=== PATIENT | male | born 1955 | race Caucasian/White ===

== ENCOUNTER 2018-07-09 07:58 | Inpatient (IN) ==
[2018-07-09] MEDS ORDERED: cefOXitin 2,000 MG in Water for inj. (sterile) 20 ML 20 ML IVP ONE (08:26)
[2018-07-09] MEDS: Ringers Solution, Lactated 1,000 ML IVC SCH ×3 (08:53→15:40)
--- NOTE | 2018-07-09 08:56 | History & Physical Report ---
Date of Encounter: 07/09/18 Time of Encounter: 08:55 24 Hour HP Update - Instructions Instructions: If the History and Physical is less than 30 days old and was completed prior to A.M. admission and or procedure and has NOT been updated on calendar day of procedure please complete this update prior to performing procedure. - Update Patient reports changes in Medical Condition: No Changes in examination, assessment, or condition: No Changes in Medication: No Preop tests/diagnostics Reviewed: Yes Surgery Remains Indicated: Yes Consent for Planned Operative Procedure(s) Verified: Yes - Pre-Operative Checklist Preoperative Checklist Indicated: Yes Prophylactic Antibiotic Ordered: Yes Home Medications Include Beta Rita: No Beta Rita Taken Today (Day of Surgery): No
[2018-07-09] MEDS ORDERED: Lidocaine -MPF 4% 5 ML AMPUL ONE (09:58)
[2018-07-09] MEDS ORDERED: *HR* Succinylcholine 200 MG/10 ML VIAL IVP ONE (09:58)
[2018-07-09] MEDS ORDERED: Lidocaine -MPF 2% 2 ML VIAL ONE (09:58)
[2018-07-09] MEDS ORDERED: *HR* Midazolam HCl 2 MG/2 ML VIAL ONE (09:58)
[2018-07-09] MEDS ORDERED: *HR* Propofol 200 MG/20 ML VIAL IVP ONE (09:58)
[2018-07-09] MEDS ORDERED: *HR* FentaNYL (PF) 100 MCG/2 ML VIAL ONE (09:58)
[2018-07-09] MEDS ORDERED: Dexamethasone 4 MG/ML VIAL ONE (09:58)
[2018-07-09] MEDS ORDERED: *HR* Rocuronium Bromide 50 MG/5 ML VIAL ONE ×2 (09:58→11:57)
[2018-07-09] MEDS ORDERED: Ondansetron 4 MG/2 ML VIAL ONE (09:58)
--- NOTE | 2018-07-09 10:07 | Anesthesia Evaluation PreOp ---
Date of Encounter: 07/09/18 Time of Encounter: 10:05 - Past History Planned Operation: Robotic low anterior resection w diverting ileostomy Cardiac History: HTN, Hyperlipidemia, Other (mod one vessel CAD) Pulmonary History: Former smoker, ALICIA Dx (does not wear a cpap) COMPENSATION ADVISOR History: Other (neuropathy) Other Medical History: GERD, Other (colon CA s/p radiation and chemo 04/2018) Alcohol Use: none Drug use: marijuana Medications and Allergies Lisinopril [Zestril] 10 mg PO DAILY 03/12/18 [History] metFORMIN [Glucophage] 500 mg PO BID 03/12/18 [History] Pravastatin Sodium [Pravachol] 20 mg PO DAILY 03/20/18 [History] Calcium Carbonate/Vitamin D3 [Calcium 500 + Vit D Caplet] 1 tab PO DAILY 07/09/18 [History] Multivitamin [One Daily Multivitamin] 1 tab PO DAILY 07/09/18 [History] [place]-3/Dha/Epa/Fish Oil [Cvs Fish Oil 1,000 mg Softgel] 1 cap PO DAILY 07/09/18 [History] Allergy/AdvReac Type Severity Reaction Status Date / Time No Known Allergies Allergy Verified 07/09/18 08:57 - Meds/Allergy Pre-op Review Medications Reviewed: Yes Allergies Reviewed: Yes Beta Blockers on Current Med List: No Anesthesia Results - Labs Laboratory Tests 06/20/18 07/04/18 07/04/18 11:37 07:14 07:14 WBC 3.4 L Hgb 13.5 Hct 41.6 Plt Count 160 Sodium 138 Potassium 4.4 Chloride 104 Carbon Dioxide 28 BUN 13 Creatinine 0.70 Est GFR ( Amer) > 60 Est GFR (Non-Af Amer) > 60 BUN/Creatinine Ratio 19 Glucose 89 Est Mean Plasma Glucose 94 Hemoglobin A1c 4.9 - Imaging EKG: report reviewed, image reviewed (SINUS BRADYCARDIA MODERATE VOLTAGE CRITERIA FOR LVH, CONSIDER NORMAL VARIANT) Anesthesia Exam Last Vital Signs Temp 98.3 F 07/09/18 08:43 Pulse 75 07/09/18 08:43 Resp 18 07/09/18 08:43 BP 129/82 07/09/18 08:43 Pulse Ox 98 07/09/18 08:43 Weight: 95 kg NPO (# of Hours): > 8 hrs - HEENT Pupil (Motor): Pupils equal, EOMI Mallampati: III Teeth: Missing Denture Type: Upper: Partial Oral Opening: Greater than 3 - COMPENSATION ADVISOR LOC: Oriented - Cardiac Rhythm: Regular Murmur: None - Pulmonary Breath Sounds: bilateral Clear Respiratory Effort: Symmetrical Anesthesia Assess/Plan ASA Score: 3 Level of consciousness: Cooperative Anesthetic Plan: General Monitoring Plan: Standard Monitors Recovery Plan: PACU
[2018-07-09] MEDS ORDERED: *HR* Promethazine 25 MG/ML VIAL IVP PRN (10:08)
[2018-07-09] MEDS ORDERED: Acetaminophen IV 1,000 MG/100 ML INFUS..BTL IVPB ONE (10:08)
[2018-07-09] MEDS ORDERED: Neostigmine Methylsulfate 3 MG/3 ML SYRINGE ONE (12:34)
[2018-07-09] MEDS ORDERED: *HR* HYDROMORPHONE 2 MG/ML VIAL ONE (13:22)
[2018-07-09] MEDS: *HR* HYDROmorphone (PF) 1 MG/ML SYRINGE IVP PRN ×4 (14:47→15:02)
[2018-07-09] MEDS: *HR* FentaNYL (PF) 100 MCG/2 ML VIAL IVP PRN ×2 (14:55→15:00)
--- NOTE | 2018-07-09 15:21 | Operative Note ---
Date of procedure: 07/09/18 Pre-op diagnosis: Rectal cancer Post-op diagnosis: same Procedure: Robotic low anterior resection with 33 mm EEA stapling and diverting loop ileostomy Anesthesia: ISABELAA Surgeon: Diego Stephens Was there an home based assistant present: Yes Car Attendant: Zulma Otero Estimated blood loss (cc): 5 Specimen: Rectum Condition: stable Disposition: floor Procedure in Detail: After informed consent, patient taken operating room placed supine position. After adequate sedation anesthesia patient was placed in a lithotomy position. After proper timeout a 12 mm cannula site was placed right superior to the umbilicus. Pneumoperitoneum was greater. A 13 mm cannula was placed in right lower quadrant. 5 mm camera was placed in the right upper quadrant. An 8 mm cannula was placed in subxiphoid region followed by another 8 mm in the left lower quadrant. Patient was placed in a headdown position. The robot was docked over the patient's left hip. Small bowel swept out of the pelvis. Rectosigmoid colon was then grasped and retracted cephalad. The peritoneum was then scored level of the sacral promontory. The left ureter was identified and kept on harm's way. The inferior mesenteric artery was then taken with a vessel sealer. The lateral rectosigmoid stalks were taken down the vessel sealer. The dissection was carried out down to the pelvic floor. The pelvic floor musculature was easily visualized. Rectosigmoid colon was dissected free from the retro-pubic tubercle region and the seminal vesicles were kept out of harm's way. Once it was freed a 45 mm robotic Endo staplers fired across the rectum. Once it was retracted and area was demarcated on the rectosigmoid sigmoid colon for transection. Indocyanine green was infused and we had excellent perfusion. A counterincision was made in the suprapubic region. Dissection carried down the anterior rectus sheath. The rectus muscles were then divided in the midline with Samira clamp. Once they were split the rectum and mesorectum were delivered. Amy bowel clamps are used to place across the colon proximal and distal and transected. Allis clamps are placed on the bowel and then a pursestring suture device placed on the colon. 3-0 Prolene suture was passed. A pursestring sutures and created and a 33 mm EEA anvil was placed. Suture was tied and secured. Colon was then placed back in the pelvis. The stapler was passed through the anal canal and to the rectal stump and then the spear was placed through the staple line. The anvil was then connected secured and fired. There were 2 excellent donuts. A leak test revealed no leak. At this point the terminal ileum was identified and brought up through an incision made on the right abdominal wall. A bridge was placed through the mesentery of the small bowel. The antimesenteric border was then opened with left cautery. A chefornak double-barreled ileostomy was matured with 3-0 Vicryl suture. Wound drainage bag was placed on the patient's abdomen. At that point the procedure was termin ated. All incisions are closed with 0 Vicryl suture and 4-0 Vicryl suture. Marcaine was inserted in the Pfannenstiel incision. He tolerated the procedure well.
--- NOTE | 2018-07-09 15:44 | Anesthesia Evaluation Post Op ---
Date of Encounter: 07/09/18 Time of Encounter: 15:43 - Discharge PostOp Status: Transfer Patient to floor (Patient's vital signs have been reviewed. Patient is stable postoperatively and has adequately recovered from anesthesia. Patient is determined to have stable airway patency and respiratory function including respiratory rate and oxygen saturation. Patient has a stable heart rate, blood pressure and adequate hydration. Patients mental status is acceptable. Patients temperature is appropriate. Pain and nausea are adequately controlled.)
[2018-07-09] MEDS ORDERED: Naloxone 0.4 MG/ML INJ IVP PRN (16:30)
[2018-07-09] MEDS ORDERED: Ketorolac 15 MG/ML VIAL IVP SCH (18:00)
[2018-07-09] MEDS: OXYCODONE Oral CONC 10 MG/0.5 ML ORAL.SYG SL PRN (23:59)
[2018-07-10] MEDS: 0.9 % Sodium Chloride 1,000 ML IVC SCH ×3 (01:28→11:21)
[2018-07-10] MEDS: OXYCODONE Oral CONC 10 MG/0.5 ML ORAL.SYG SL PRN (03:20)
[2018-07-10 04:55] LABS: Hematocrit 39.8 % (37.5-50.1); Hemoglobin 13.6 g/dL (12.9-16.9); Immature Granulocytes % 0.3 % (0-4); Lymphocytes # 0.3 K/mcL (0.6-4.6); Lymphocytes % 3.4 %; Mean Corpuscular HGB Conc 34.2 g/dL (31.6-35.5); Mean Corpuscular Hemoglobin 32.7 pg (28.0-33.3); Mean Corpuscular Volume 95.7 fL (83.0-100.0); Mean Platelet Volume 8.9 fL (9.4-12.4); Monocytes # 0.2 K/mcL (0.0-1.3); Monocytes % 3.1 %; Platelet Count 171 K/mcL (140-400); Red Blood Count 4.16 M/mcL (4.19-5.50); Red Cell Distribution Width 13.2 % (11.5-14.5); Segmented Neutrophils % 93.2 %
[2018-07-10 05:13] LABS: BUN/Creatinine Ratio 20 (6-26); Blood Urea Nitrogen 14 mg/dL (8-23); Calcium 8.8 mg/dL (8.6-10.3); Carbon Dioxide 23 mEq/L (23-29); Chloride 104 mEq/L (98-107); Glucose 146 mg/dL (70-105); Osmolality,Calculated 285 (280-300); Potassium 4.1 mEq/L (3.5-5.1); Sodium 136 mEq/L (136-145); eGFR For Non-African Americans > 60 (> 60)
[2018-07-10] MEDS ORDERED: OXYCODONE Oral CONC 10 MG/0.5 ML ORAL.SYG SL PRN (09:49)
[2018-07-10] MEDS ORDERED: 0.9 % Sodium Chloride 1,000 ML IVC SCH (10:00)
--- NOTE | 2018-07-10 10:28 | General Surgery Progress Note ---
Date of Encounter: 07/10/18 Time of Encounter: 10:18 - Assessment and Plan (1) Rectal cancer Current Visit: No Status: Acute Date of procedure: 07/09/18 Pre-op diagnosis: Rectal cancer Post-op diagnosis: same Procedure: Robotic low anterior resection with 33 mm EEA stapling and diverting loop ileostomy Anesthesia: ORLY Surgeon: Diego Stephens POD #1 as above. Pathology pending. He is recovering remarkably well. Active bowel sounds, flatus, and bowel sweat per ostomy noted. Stoma is pink and moist. He is somewhat fixated on concern for addiction to oxycodone and states he felt like the oxycodone made it difficult to sleep. We will d/c oxycodone and stick with scheduled Ofirmev and Toradol today. He further states his sister is bringing him apple cider vinegar and other supplements to help him.He thingk he took 30 mg of melatonin at home to hep him sleep. He is advised to refrain from ay medication or supplements except as prescribed in the hospital. Plan: continue supportive care and discomfort management while awaiting full return of bowel function scheduled Ofirmev and Toradol add melatonin at night for a sleep aid continue home medications incentive spirometer ambulate TID out of bed to chair for all trays EP CDs continue G.I. and DVT prophylaxis do not take any medications others than what is provided in the hospital while here. (2) Type II diabetes mellitus Current Visit: Yes Status: Chronic continue home meds Qualifiers: Diabetes mellitus halfway insulin use: without halfway use Diabetes mellitus complication status: with unspecified complications Qualified Code(s): E11.8 - Type 2 diabetes mellitus with unspecified complications (3) HTN, goal below 130/80 Current Visit: Yes Status: Chronic continue home meds (4) GERD (gastroesophageal reflux disease) Current Visit: Yes Status: Chronic Continue GI prophylaxis Qualifiers: Esophagitis presence: esophagitis presence not specified Qualified Code(s): K21.9 - Gastro-esophageal reflux disease without esophagitis (5) Marijuana use Current Visit: Yes Status: Chronic Objective Vital Signs - Last 8 Hours Temp Pulse Resp BP Pulse Ox 07/10/18 06:56 97.8 F 67 16 146/77 98 07/10/18 04:14 98.0 F 68 16 121/68 97 Intake and Output 01/07/10/18 07/10/18 23:59 07:59 15:59 Intake Total 0 / 0 800 / 800 360 / 360 Output Total 850 / 850 1000 / 1000 Balance 0 / 0 -50 / -50 -640 / -640 Intake: Oral 0 / 0 800 / 800 360 / 360 Tube Feeding 0 / 0 Free Water 0 / 0 Output: Catheter 850 / 850 1000 / 1000 Other: Meal CLEARS Stool Consistency liquid Stool Color Blood Tinged Weight 95.3 kg Patient Weight 07/10/18 23:59 Weight 95.3 kg - Labs 07/10/18 04:34 07/10/18 04:34 Diabetes panel 07/10/18 Range/Units 04:34 Sodium 136 (136-145) mEq/L Potassium 4.1 (3.5-5.1) mEq/L Chloride 104 (98-107) mEq/L Carbon Dioxide 23 (23-29) mEq/L BUN 14 (8-23) mg/dL Creatinine 0.70 (0.70-1.30) mg/dL Glucose 146 H (70-105) mg/dL Calcium 8.8 (8.6-10.3) mg/dL Calcium panel 07/10/18 Range/Units 04:34 Calcium 8.8 (8.6-10.3) mg/dL Pituitary panel 07/10/18 Range/Units 04:34 Sodium 136 (136-145) mEq/L Potassium 4.1 (3.5-5.1) mEq/L Chloride 104 (98-107) mEq/L Carbon Dioxide 23 (23-29) mEq/L BUN 14 (8-23) mg/dL Creatinine 0.70 (0.70-1.30) mg/dL Glucose 146 H (70-105) mg/dL Calcium 8.8 (8.6-10.3) mg/dL Adrenal panel 07/10/18 Range/Units 04:34 Sodium 136 (136-145) mEq/L Potassium 4.1 (3.5-5.1) mEq/L Chloride 104 (98-107) mEq/L Carbon Dioxide 23 (23-29) mEq/L BUN 14 (8-23) mg/dL Creatinine 0.70 (0.70-1.30) mg/dL Glucose 146 H (70-105) mg/dL Calcium 8.8 (8.6-10.3) mg/dL Consult Discharge Plan - Plan Instructions: Ileostomy Care (DC), Ileostomy Creation (DC) Referrals: Mansi Plummer, GAUTAM [Primary Care Provider] - Diego Stephens DO [Partnered Physician] - 07/22/18 10:00 am
[2018-07-10] MEDS: Metoclopramide 10 MG/2 ML VIAL IVP SCH ×2 (11:22→17:40)
[2018-07-10] MEDS: Ketorolac 15 MG/ML VIAL IVP SCH ×3 (11:22→17:40)
[2018-07-10] MEDS: Pantoprazole 40 MG VIAL IVP SCH (11:23)
[2018-07-10] MEDS: Acetaminophen IV 1,000 MG/100 ML INFUS..BTL IVPB SCH ×2 (12:21→17:42)
[2018-07-10] MEDS: *HR* Heparin 5,000 UNIT/ML VIAL SQ SCH ×2 (14:41→14:43)
--- NOTE | 2018-07-10 15:04 | Discharge Summary ---
Orders not resulted at time of discharge: Pending orders 07/09/18 14:00 Surgical Pathology Specimen Routine Date of Encounter: 07/11/18 Time of Encounter: 11:55 - Discharge Diagnosis (1) Rectal cancer Priority: Primary Status: Acute (2) Type II diabetes mellitus Priority: Secondary Status: Chronic Qualifiers: Diabetes mellitus shelter insulin use: without shelter use Diabetes mellitus complication status: with unspecified complications Qualified Code(s): E11.8 - Type 2 diabetes mellitus with unspecified complications (3) HTN, goal below 130/80 Priority: Secondary Status: Chronic (4) GERD (gastroesophageal reflux disease) Priority: Secondary Status: Chronic Qualifiers: Esophagitis presence: esophagitis presence not specified Qualified Code(s): K21.9 - Gastro-esophageal reflux disease without esophagitis (5) Marijuana use Priority: Secondary Status: Chronic General Surgery Exam Initial Vital Signs Temp Pulse Resp BP Pulse Ox 98.3 F 75 18 129/82 98 07/09/18 08:43 07/09/18 08:43 07/09/18 08:43 07/09/18 08:43 07/09/18 08:43 Vital Signs Temp Pulse Resp BP Pulse Ox 07/11/18 10:34 98.1 F 68 16 132/55 97 07/11/18 08:26 97 07/11/18 07:21 97.9 F 67 16 155/75 97 07/11/18 03:10 98.2 F 57 14 134/69 97 07/10/18 18:44 98.8 F 81 14 132/61 98 07/10/18 14:51 98.4 F 69 16 113/45 98 Intake and Output 07/10/18 07/11/18 07/11/18 23:59 07:59 15:59 Intake Total 100 / 100 1220 / 1220 220 / 220 Output Total 500 / 500 500 / 500 200 / 200 Balance -400 / -400 720 / 720 20 / 20 Intake: IV Fluids 100 / 100 1100 / 1100 100 / 100 0.9 % Sodium Chloride 1,000 ML 1000 / 1000 @ 50 mls/hr IVC .Q20H AKIRA Rx#: [id number] Ofirmev 1,000 mg/100 ml 1,000 100 / 100 100 / 100 100 / 100 mg In 100 ml @ 400 mls/hr IVPB Q6HR AKIRA Rx#:[id number] Oral 0 / 0 120 / 120 120 / 120 Output: Urine 400 / 400 500 / 500 Stool 100 / 100 0 / 0 200 / 200 Other: Meal Breakfast Percent of Meal Consumed 100% Stool Consistency loose Stool Color Brown Weight 95.6 kg Patient Weight 07/11/18 23:59 Weight 95.6 kg VITAL SIGNS: Reviewed. See [facility] GENERAL: In no apparent distress. HEENT: Normocephalic, atraumatic, pupils are equal and reactive, extraocular motions intact, oropharynx is pink and moist, there is no neck adenopathy or JVD noted. CHEST/RESPIRATORY: The thorax is free from signs of trauma. Lung sounds: clear to auscultation, normal respiratory effort CARDIAC: Regular rate and rhythm. Normal S1 and S2, without murmurs, gallops, or rubs. VASCULAR: No Edema. 2+ peripheral pulses. ABDOMEN: offed, expected postoperative tenderness, active bowel sounds INCISION: Surgical incision is clean, dry, and intact. There are no signs of cellulitis or infection noted. WOUNDS/DRAINS: ileostomy functioning as expected. Stoma is pink and moist. Accept defaults MUSCULOSKELETAL: Good range of motion of all major joints. Extremities without clubbing, cyanosis or edema. NEUROLOGIC EXAM: Alert and oriented x 3. Speech normal. Follows commands. PSYCHIATRIC: Mood normal. SKIN: No rash or lesions. - Hospital Course Hospital course: Mr. Miller is a 62 year old male who presented on 07/09/2017 for an elective robotic low anterior resection with 33 mm EEA stapling and diverting Loop ileostomy for rectal cancer. His postoperative hospital course has been uncomplicated. He is emulating avoiding without difficulty, tolerating diet without nausea or vomiting, vital signs are stable, and he is afebrile. We will begin discharge planning to home with home health and a follow-up in the office in approximately 2 weeks. - Time Spent with Patient Total time spent providing and/or coordinating discharge services: - Discharge Medications Prescriptions: Ibuprofen 800 mg PO Q8H PRN #30 tablet PRN Reason: Postsurgical pain Home Medications: Lisinopril [Zestril] 10 mg PO DAILY 03/12/18 [History] metFORMIN [Glucophage] 500 mg PO BID 03/12/18 [History] Pravastatin Sodium [Pravachol] 20 mg PO DAILY 03/20/18 [History] Calcium Carbonate/Vitamin D3 [Calcium 500 + Vit D Caplet] 1 tab PO DAILY 07/09/18 [History] Multivitamin [One Daily Multivitamin] 1 tab PO DAILY 07/09/18 [History] [place]-3/Dha/Epa/Fish Oil [Cvs Fish Oil 1,000 mg Softgel] 1 cap PO DAILY 07/09/18 [History] Ibuprofen 800 mg PO Q8H PRN #30 tablet 07/11/18 [Rx] Allergies/Adverse Reactions: Allergy/AdvReac Type Severity Reaction Status Date / Time No Known Allergies Allergy Verified 07/09/18 08:57 Date of admission: 07/09/18 16:26 Primary care physician: Mansi Plummer CNP Consults: 07/10/18 09:41 Consult to Wound Care [CONS] Stat Reason for Consult: New end ileiostomy teaching Time Notified: 09:42 Call Completed: Yes 07/10/18 09:42 Consult to Sound Effects Supervisor [CONS] Routine Reason for SW Consult: C for new end ileostomy care 07/10/18 09:49 consult to turkey roll maker [Consult to Nutrition] [CONS] Routine Comment: ileostomy diet Consulting Provider: NUTRITION Reason for Dietary Consult: Diet Education Discharging clinician: Diego Stephens Anticipated date of discharge: 07/11/18 Labs on day of discharge: Labs from last 24 hours 07/10/18 07/10/18 04:34 04:34 WBC 7.5 D RBC 4.16 L Hgb 13.6 Hct 39.8 MCV 95.7 MCH 32.7 MCHC 34.2 RDW 13.2 Plt Count 171 MPV 8.9 L Immature Gran % 0.3 Seg Neutrophils % 93.2 Lymphocytes % 3.4 Monocytes % 3.1 Eosinophils % 0.0 Basophils % 0.0 Neutrophils # 7.0 Lymphocytes # 0.3 L Monocytes # 0.2 Eosinophils # 0.0 Basophils # 0.0 Sodium 136 Potassium 4.1 Chloride 104 Carbon Dioxide 23 BUN 14 Creatinine 0.70 Est GFR ( Amer) > 60 Est GFR (Non-Af Amer) > 60 BUN/Creatinine Ratio 20 Glucose 146 H Calculated Osmolality 285 Calcium 8.8 - Patient Status Disposition: Home Health Service Condition: Good Functional capacity at discharge: independent ambulation Overall status at discharge: patient is progressing back to baseline - Discharge Instructions Instructions: Ileostomy Care (DC), Ileostomy Creation (DC) Follow Up With: Mansi Plummer, TILE DITCHER [Primary Care Provider] - Diego Stephens DO [Partnered Physician] - 07/22/18 10:00 am Additional Instructions: General Surgical Discharge Instructions 1. No pushing, pulling, or lifting greater than 15 lbs for 4 weeks (depending upon procedure). 2. You may shower beginning today, but no tub baths, soaking, or swimming for 2 weeks. 3. You may resume driving when you are off narcotics and are safe to react in a car. 4. Take ibuprofen every 8 hours for discomfort. If this does not relieve discomfort, you may take the as needed Tylenol. 5. Continue Ileostomy care as directed. 6. Report any fevers greater than 100.5F, increase abdominal discomfort, drainage that looks like pus, increased redness or pain at the surgical site, or any vomiting. 7. Report any pain in the calves, shortness of breath, or rapid heartbeat. 8. Follow-up in the office as directed. 9. If you were prescribed antibiotics, do not stop them without talking to your provider. Maintain the ileostomy diet. Ensure you are drinking plenty of fluids as dire cted. - Diet and Activity Activity: increase activity as tolerated Diet: other (ileostomy diet)
[2018-07-10] MEDS ORDERED: Ondansetron 4 MG/2 ML VIAL IVP PRN (15:19)
[2018-07-10] MEDS: *HR* Metformin 500 MG TABLET PO SCH (20:33)
[2018-07-10] MEDS ORDERED: Melatonin 3 MG TABLET PO SCH (21:00)
[2018-07-11] MEDS: Metoclopramide 10 MG/2 ML VIAL IVP SCH ×3 (00:31→12:41)
[2018-07-11] MEDS: Ketorolac 15 MG/ML VIAL IVP SCH ×2 (00:31→05:36)
[2018-07-11] MEDS: Acetaminophen IV 1,000 MG/100 ML INFUS..BTL IVPB SCH ×2 (00:31→05:36)
[2018-07-11] MEDS: *HR* Heparin 5,000 UNIT/ML VIAL SQ SCH (05:36)
[2018-07-11] MEDS: 0.9 % Sodium Chloride 1,000 ML IVC SCH (08:14)
[2018-07-11] MEDS: *HR* Metformin 500 MG TABLET PO SCH (08:15)
[2018-07-11] MEDS: Pantoprazole 40 MG VIAL IVP SCH (08:15)
[2018-07-11 10:41] VITALS: BP 132/55
[2018-07-11] MEDS ORDERED: Ibuprofen 600 MG TABLET PO PRN (11:53)
--- NOTE | 2018-07-11 12:01 | Physician Discharge Referral ---
Home Health/Hosp Referral Info Transfer to: Home Health Attending Provider: Dr. Mauricio Stephens Provider in Charge Post Discharge: Other (Same) - Diagnosis (1) Rectal cancer Priority: Primary Status: Acute (2) Type II diabetes mellitus Priority: Secondary Status: Chronic (3) HTN, goal below 130/80 Priority: Secondary Status: Chronic (4) GERD (gastroesophageal reflux disease) Priority: Secondary Status: Chronic (5) Marijuana use Priority: Secondary Status: Chronic - Respiratory Orders Smoking Cessation: Smoking cessation has been advised. For more information, call the [place] Tobacco Quit Line at 0-557-BSWP-NOW. - Dressing/Wound Care Site: Ileostomy care [facility] scripts provided. - Diet/Nutrition Diet/Nutrition: List: Ileostomy diet Increase fluid intake to supplement loss - Activity Activity Orders: Up ad ariela - Services Needed Following services are medically necessary services: Nursing - Transfer Medications Prescriptions: Ibuprofen 800 mg PO Q8H PRN #30 tablet PRN Reason: Postsurgical pain Home Medications: Lisinopril [Zestril] 10 mg PO DAILY 03/12/18 [History] metFORMIN [Glucophage] 500 mg PO BID 03/12/18 [History] Pravastatin Sodium [Pravachol] 20 mg PO DAILY 03/20/18 [History] Calcium Carbonate/Vitamin D3 [Calcium 500 + Vit D Caplet] 1 tab PO DAILY 07/09/18 [History] Multivitamin [One Daily Multivitamin] 1 tab PO DAILY 07/09/18 [History] [place]-3/Dha/Epa/Fish Oil [Cvs Fish Oil 1,000 mg Softgel] 1 cap PO DAILY 07/09/18 [History] Ibuprofen 800 mg PO Q8H PRN #30 tablet 07/11/18 [Rx] Allergies/Adverse Reactions: Allergy/AdvReac Type Severity Reaction Status Date / Time No Known Allergies Allergy Verified 07/09/18 08:57 Certification: Further, I certify that my clinical findings support that this patient is homebound (i.e. absences from home require considerable and taxing effort and are for medical reasons or bahai services or infrequently or short duration when for other reasons) because: Homebound Reason: Leaving home requires considerable and taxing effort due to condition Attestation: My signature below is to certify that this patient is under my care and that I, or nurse practitioner, or a physician's hospital aides and assistants teacher working with me, has a [id number] encounter with this patient.
== END 2018-07-11 13:24 | disposition home health service (06) | DRG 331 ==
LOC: SAMDAY 07:58 → 3ANU 16:26
PROVIDERS: ADMIT Surgery; ATTEND Surgery

== ENCOUNTER 2019-03-29 11:52 | Inpatient (IN) ==
[2019-03-29] MEDS ORDERED: *HR* Promethazine 25 MG/ML VIAL IVP ONE (12:15)
[2019-03-29] MEDS ORDERED: Isovue-370 500 ML BOTTLE IVP ONE (12:16)
[2019-03-29 12:29] LABS: Bilirubin,Urine Small (Negative); Blood,Urine Negative (Negative); Clarity,Urine Clear (Clear); Color,Urine Dark Yellow (Yellow); Glucose,Urine (UA) Normal (Normal); Ketones,Urine 15 mg/dL (Negative); Leukocyte Esterase,Urine Negative (Negative); Nitrite,Urine Negative (Negative); Protein,Urine Trace mg/dL (Neg-Trace); Specific Gravity,Urine > 1.030 (1.010-1.025); Urobilinogen,Urine Normal (Normal)
[2019-03-29 12:59] LABS: Basophils % 0.2 %; Hemoglobin 16.9 g/dL (12.9-16.9); Immature Granulocytes % 0.4 % (0-4); Lymphocytes # 0.2 K/mcL (0.6-4.6); Lymphocytes % 3.8 %; Mean Corpuscular Hemoglobin 31.2 pg (28.0-33.3); Mean Platelet Volume 9.4 fL (9.4-12.4); Monocytes # 0.3 K/mcL (0.0-1.3); Platelet Count 222 K/mcL (140-400); Red Blood Count 5.41 M/mcL (4.19-5.50); Red Cell Distribution Width 13.8 % (11.5-14.5); Segmented Neutrophils % 90.6 %; White Blood Count 5.6 K/mcL (4.3-11.1)
[2019-03-29 13:00] LABS: Mean Corpuscular Volume 86.9 fL (83.0-100.0)
[2019-03-29 13:01] LABS: Alanine Aminotransferase 22 Units/L (7-52); Albumin 4.6 g/dL (3.5-5.7); Albumin/Globulin Ratio 1.8 (1.1-2.2); Alkaline Phosphatase 104 Units/L (34-104); Aspartate Amino Transferase 21 Units/L (13-39); BUN/Creatinine Ratio 25 (6-26); Bilirubin,Direct 0.4 mg/dL (0.0-0.2); Bilirubin,Indirect 1.2 mg/dL (0.0-1.2); Bilirubin,Total 1.6 mg/dL (0.3-1.0); Blood Urea Nitrogen 21 mg/dL (8-23); Calcium 9.4 mg/dL (8.6-10.3); Carbon Dioxide 29 mEq/L (23-29); Chloride 94 mEq/L (98-107); Globulin 2.5 g/dL (2.4-3.5); Glucose 168 mg/dL (70-105); Lipase 11 Units/L (11-82); Osmolality,Calculated 285 (280-300); Potassium 4.1 mEq/L (3.5-5.1); Sodium 134 mEq/L (136-145); Total Protein 7.1 g/dL (6.4-8.9); Troponin I < 0.03 ng/mL (< 0.04); eGFR For African Americans > 60 (> 60); eGFR For Non-African Americans > 60 (> 60)
[2019-03-29 13:09] LABS: INR 1.2; Prothrombin Time 13.1 Seconds (9.4-12.1)
[2019-03-29 13:12] LABS: Activated Partial Thrombo Time 31.4 Seconds (26.0-36.0)
[2019-03-29] MEDS ORDERED: 0.9 % Sodium Chloride 1,000 ML IVC ONE (15:07)
[2019-03-29] MEDS ORDERED: *HR* FentaNYL (PF) 100 MCG/2 ML VIAL IVP ONE (15:07)
[2019-03-29] MEDS ORDERED: 0.9 % Sodium Chloride 1,000 ML IV ONE (16:49)
[2019-03-29] MEDS: Ringers Solution, Lactated 1,000 ML IVC SCH (18:44)
[2019-03-29] MEDS: Insulin LISPRO 300 UNITS/3 ML VIAL SQ SCH ×2 (18:59→23:34)
[2019-03-29] MEDS: *HR* Heparin 5,000 UNIT/ML VIAL SQ SCH (20:58)
[2019-03-29] MEDS ORDERED: Ondansetron 4 MG/2 ML VIAL IVP ONE (23:40)
[2019-03-30] MEDS: Ringers Solution, Lactated 1,000 ML IVC SCH ×2 (04:59→15:18)
[2019-03-30 05:43] LABS: Basophils % 0.4 %; Eosinophils # 0.1 K/mcL (0.0-0.6); Eosinophils % 1.8 %; Hematocrit 44.6 % (37.5-50.1); Lymphocytes # 0.5 K/mcL (0.6-4.6); Lymphocytes % 18.3 %; Mean Corpuscular HGB Conc 33.4 g/dL (31.6-35.5); Mean Corpuscular Hemoglobin 30.7 pg (28.0-33.3); Mean Corpuscular Volume 91.8 fL (83.0-100.0); Mean Platelet Volume 9.3 fL (9.4-12.4); Monocytes # 0.3 K/mcL (0.0-1.3); Monocytes % 12.2 %; Neutrophils # 1.9 K/mcL (1.6-8.9); Platelet Count 207 K/mcL (140-400); Red Blood Count 4.86 M/mcL (4.19-5.50); Red Cell Distribution Width 14.3 % (11.5-14.5); Segmented Neutrophils % 67.3 %; White Blood Count 2.8 K/mcL (4.3-11.1)
[2019-03-30 05:49] LABS: Hemoglobin 14.9 g/dL (12.9-16.9)
[2019-03-30 06:02] LABS: BUN/Creatinine Ratio 23 (6-26); Blood Urea Nitrogen 19 mg/dL (8-23); Calcium 8.7 mg/dL (8.6-10.3); Carbon Dioxide 29 mEq/L (23-29); Chloride 100 mEq/L (98-107); Glucose 117 mg/dL (70-105); Osmolality,Calculated 289 (280-300); Potassium 3.9 mEq/L (3.5-5.1); Sodium 138 mEq/L (136-145); eGFR For African Americans > 60 (> 60); eGFR For Non-African Americans > 60 (> 60)
[2019-03-30] MEDS: Insulin LISPRO 300 UNITS/3 ML VIAL SQ SCH ×3 (06:33→18:07)
[2019-03-30] MEDS: *HR* Heparin 5,000 UNIT/ML VIAL SQ SCH ×3 (06:40→21:18)
[2019-03-30 07:32] LABS: Magnesium 2.2 mg/dL (1.6-2.6)
[2019-03-30] MEDS: Pantoprazole 40 MG VIAL IVP SCH (10:44)
[2019-03-30] MEDS ORDERED: Lidocaine Jelly 6ml 1 APPL/6 ML JEL.PF.APP TP ONE (12:21)
[2019-03-30] MEDS ORDERED: Chloraseptic Spray 177 ML BOTTLE MM PRN (17:00)
[2019-03-30] MEDS ORDERED: *HR* LORazepam 2 MG/ML VIAL IVP ONE (21:27)
[2019-03-31] MEDS: Insulin LISPRO 300 UNITS/3 ML VIAL SQ SCH ×4 (00:04→18:03)
[2019-03-31] MEDS: Ringers Solution, Lactated 1,000 ML IVC SCH (05:22)
[2019-03-31] MEDS: *HR* Heparin 5,000 UNIT/ML VIAL SQ SCH ×2 (05:27→13:17)
[2019-03-31 06:50] LABS: BUN/Creatinine Ratio 20 (6-26); Blood Urea Nitrogen 13 mg/dL (8-23); Calcium 8.6 mg/dL (8.6-10.3); Carbon Dioxide 28 mEq/L (23-29); Chloride 102 mEq/L (98-107); Glucose 85 mg/dL (70-105); Osmolality,Calculated 287 (280-300); Potassium 3.8 mEq/L (3.5-5.1); Sodium 139 mEq/L (136-145); eGFR For African Americans > 60 (> 60); eGFR For Non-African Americans > 60 (> 60)
[2019-03-31] MEDS: Pantoprazole 40 MG VIAL IVP SCH (08:24)
[2019-03-31 18:57] VITALS: BP 157/89
== END 2019-03-31 19:42 | disposition home or self-care (01) | DRG 390 ==
LOC: EMEROOARM 11:52 → SUATTDRO 17:01 → 3ANU 17:01
PROVIDERS: ADMIT Internal Medicine; ATTEND Internal Medicine